=== PATIENT | female | born 1955 | race African-American/Black ===

== ENCOUNTER 2019-02-04 12:58 | Emergency (ER) | payer OTHER ==
[~2019-02-04] VITALS: Ht 149.9 cm; Wt 57.0 kg
[~2019-02-04 12:58] MED LIST: ASPI-1198 PO; BP MED; HYDR-3706 PO; TRAM50TA2
[2019-02-04] MEDS ORDERED: LORA2TAB2 PO (13:11)
[2019-02-04] MEDS ORDERED: LORazepam 2 MG/ML VIAL IM ONE (14:30)
[2019-02-04 14:57] LABS: BASOPHILS % (AUTO) 0.9 % (0.0-2.0); EOSINOPHILS % (AUTO) 0.9 % (1.0-6.0); HEMATOCRIT 43.6 % (36-46); HEMOGLOBIN 14.3 g/dL (12.0-16.0); LYMPHOCYTES # (AUTO) 1.2 K/uL (1.0-4.8); LYMPHOCYTES % (AUTO) 15.8 % (22.0-44.0); MEAN CORPUSCULAR HEMOGLOBIN 28.6 pg (26.0-34.0); MEAN CORPUSCULAR HGB CONC 32.7 G/dL (31.0-37.0); MEAN CORPUSCULAR VOLUME 88 fL (80-100); MONOCYTES # (AUTO) 0.4 K/uL (0.1-1.0); MONOCYTES % (AUTO) 5.4 % (2.0-9.0); NEUTROPHILS # (AUTO) 5.9 K/uL (1.8-7.7); PLATELET COUNT (AUTO) 283 K/uL (150-450); RED BLOOD CELL COUNT(AUTO) 4.98 MIL/uL (4.00-5.20); RED CELL DISTRIBUTION WIDTH 14.4 % (11.5-14.5)
[2019-02-04 15:30] LABS: ANION GAP 12 mmol/L (8-16); CALCIUM, TOTAL 9.8 mg/dL (8.8-10.5); CARBON DIOXIDE 25 mmol/L (22-29); CHLORIDE 101 mmol/L (98-107); CREATININE 0.81 mg/dL (0.60-1.30); GLOMERULAR FILTR. RATE CALC > 60 mL/min (>60); GLUCOSE,RANDOM 101 mg/dL (70-110); POTASSIUM 3.5 mmol/L (3.5-5.1); SODIUM SERUM 138 mmol/L (136-145); UREA NITROGEN, BLOOD 11 mg/dL (7-18)
[2019-02-04 15:35] LABS: ALANINE AMINOTRANSFERASE 18 U/L (12-78); ALBUMIN 4.2 g/dL (3.4-5.0); ALKALINE PHOSPHATASE 102 U/L (46-116); ASPARTATE AMINOTRANSFERASE 20 U/L (15-37); BILIRUBIN,TOTAL 0.6 mg/dL (0.1-1.0); TOTAL PROTEIN, SERUM 8.3 g/dL (6.4-8.2)
[2019-02-04 15:57] VITALS: BP 148/87
== END 2019-02-04 15:59 | disposition home or self-care (01) ==
LOC: EMS 12:58
DX: R06.00 Dyspnea, unspecified (principal); F41.9 Anxiety disorder, unspecified; F14.10 Cocaine abuse, uncomplicated; I10 Essential (primary) hypertension; F19.90 Other psychoactive substance use, unspecified, uncomplicated; R00.2 Palpitations
CPT/HCPCS: 36415; 71045; 80053; 84484; 85025; 93005; 96372; 99285; G0480; J2060

== ENCOUNTER 2023-12-06 16:47 | Emergency (ER) | payer MEDICARE, OTHER ==
[~2023-12-06] VITALS: Ht 152.4 cm; Wt 56.8 kg
[~2023-12-06 16:47] MED LIST changes: -ASPI-1198 PO; -BP MED; -HYDR-3706 PO; +LORA-1001 PO
[2023-12-06 17:03] VITALS: TEMP 98.3
[2023-12-06] MEDS: KETOROLAC TROMETHAMINE 30 MG/ML VIAL IM ONE (19:28)
[2023-12-06] MEDS ORDERED: IBUP-1492 PO (21:05)
[2023-12-06] MEDS ORDERED: METH-812 PO (21:05)
[2023-12-06 21:38] VITALS: BP 140/82; PULSE 88; RESP 18
== END 2023-12-06 21:48 | disposition home or self-care (01) ==
LOC: EMS 16:49
DX: S13.9XXA Sprain of joints and ligaments of unspecified parts of neck, initial encounter (principal); M54.9 Dorsalgia, unspecified; M54.2 Cervicalgia; M25.562 Pain in left knee; M25.561 Pain in right knee; I10 Essential (primary) hypertension; F14.90 Cocaine use, unspecified, uncomplicated; W10.8XXA Fall (on) (from) other stairs and steps, initial encounter; Y93.89 Activity, other specified; Y92.89 Other specified places as the place of occurrence of the external cause; Y99.8 Other external cause status
CPT/HCPCS: 99285; 70450; 73562; 72125; 72128; 96372; J1885